=== PATIENT | male | born 1995 | race Caucasian/White ===

== ENCOUNTER 2017-03-20 00:36 | Emergency (ER) | payer BC ==
[2017-03-20] MEDS ORDERED: diphenhydrAMINE 50 MG/ML SDV IVPUSH ONE (01:02)
[2017-03-20] MEDS ORDERED: methylPREDNISolone Sodium Succinate 125 MG/2 ML SDV IVPUSH ONE (01:02)
[2017-03-20] MEDS ORDERED: EPINEPHrine 1 MG/ML SDV SUBCUT ONE (01:03)
--- NOTE | 2017-03-20 01:06 | EDM.PDOC ---
ED HPI GENERAL MEDICAL PROBLEM - General Chief Complaint: Allergic Reaction Stated Complaint: HIVES Time Seen by Provider: 03/20/17 01:04 Source of Information: Reports: Patient History Limitations: Reports: No Limitations - History of Present Illness INITIAL COMMENTS - FREE TEXT/NARRATIVE: pt was out drinking with his buddies. Before that he had a pork dinner. He is now covered with a rash and has facial swelling. Onset: Today, Gradual, Other ( started at ten thirty. ) Duration: Hour(s):, Getting Worse Location: Reports: Face, Generalized Associated Symptoms: Reports: No Other Symptoms, Other (pt is not sob. ) - Related Data Allergies Allergy/AdvReac Type Severity Reaction Status Date / Time No Known Allergies Allergy Verified 03/20/17 01:06 Home Meds: Home Meds NK [No Known Home Meds] 03/20/17 [History] ED ROS ALLERGIC REACTION - Review of Systems Review Of Systems: See Below Constitutional: Reports: No Symptoms HEENT: Reports: No Symptoms Respiratory: Reports: No Symptoms Cardiovascular: Reports: Palpitations Endocrine: Reports: No Symptoms GI/Abdominal: Reports: No Symptoms : Reports: No Symptoms Skin: Reports: Rash, Erythema, Other (pt has sig facial swelling. He is red and hived over his entire body. ) Neurological: Reports: No Symptoms ED EXAM GENERAL NO PERIP PULSE - Physical Exam Exam: See Below Text/Narrative:: pt did some drinking and had a pork dinner tonight. About 10 thirty he developed a rash over his entire body and facial swelling. He did not feel sob. Exam Limited By: No Limitations General Appearance: Alert, Anxious, Moderate Distress Ears: Normal TMs Nose: Normal Inspection Throat/Mouth: Normal Inspection Head: Atraumatic Neck: Normal Inspection Respiratory/Chest: No Respiratory Distress Cardiovascular: Regular Rate, Rhythm GI/Abdominal: Soft, Non-Tender Neurological: Alert, Oriented Skin Exam: Rash, Other (urticarial. ) Course - Vital Signs Last Recorded V/S: Last Vital Signs Temp 36.2 C 03/20/17 01:00 Pulse 106 H 03/20/17 01:00 Resp 18 03/20/17 01:00 BP 126/69 03/20/17 01:00 Pulse Ox 98 03/20/17 01:00 - Orders/Labs/Meds Orders: Active Orders 24 hr Category Date Time Status Sodium Chloride 0.9% [Normal Saline] 1,000 ml Med 03/20/17 01:15 Active IV ASDIRECTED Medication Orders Sodium Chloride (Normal Saline) 1,000 mls @ 999 mls/hr IV ASDIRECTED LUIS Last Admin: 03/20/17 01:27 Dose: 999 mls/hr Meds: Medications Generic Name Dose Route Start Last Admin Trade Name Ladi PRN Reason Stop Dose Admin Sodium Chloride 1,000 mls @ 999 mls/hr 03/20/17 01:15 03/20/17 01:27 Normal Saline IV 999 mls/hr ASDIRECTED LUIS Administration Discontinued Medications Generic Name Dose Route Start Last Admin Trade Name Ladi PRN Reason Stop Dose Admin Diphenhydramine HCl 25 mg 03/20/17 01:02 03/20/17 01:28 Benadryl IVPUSH 03/20/17 01:03 25 mg ONETIME ONE Administration Epinephrine HCl 0.3 mg 03/20/17 01:03 03/20/17 01:30 Adrenalin SUBCUT 03/20/17 01:04 0.3 mg ONETIME ONE Administration Methylprednisolone Sodium Succinate 125 mg 03/20/17 01:02 03/20/17 01:29 Solu-Medrol IVPUSH 03/20/17 01:03 125 mg ONETIME ONE Administration - Re-Assessments/Exams Free Text/Narrative Re-Assessment/Exam: 03/20/17 01:47 pt was given solumedrol and epi, plus benadryl. His swelling has gone down. Departure - Departure Time of Disposition: 01:47 Disposition: Home, Self-Care 01 Condition: Fair Clinical Impression: Allergic reaction - Discharge Information Referrals: PCP,None [Primary Care Provider] - Forms: ED Department Discharge Care Plan Goals: benadryl 50mg q6h for the next 24 hours. rtc if further problems. - My Orders Last 24 Hours: My Active Orders 03/20/17 01:15 Sodium Chloride 0.9% [Normal Saline] 1,000 ml IV ASDIRECTED - Assessment/Plan Last 24 Hours: My Active Orders 03/20/17 01:15 Sodium Chloride 0.9% [Normal Saline] 1,000 ml IV ASDIRECTED
[2017-03-20] MEDS ORDERED: Sodium Chloride 0.9% 1,000 ML IV SCH (01:15)
[2017-03-20] MEDS ORDERED: diphenhydrAMINE 25 MG Cap PO ONE (01:49)
== END 2017-03-20 02:09 | disposition home or self-care (01) ==
LOC: JP.ED 00:36
DX: T78.1XXA Other adverse food reactions, not elsewhere classified, initial encounter (principal); L27.2 Dermatitis due to ingested food
CPT/HCPCS: 96361; 96372; 96374; 96375; 99283; J0171; J1200; J2930; J7040; J7030